=== PATIENT | female | born 1930 | race Native Hawaiian/Other Pacific Islander ===

== ENCOUNTER 2017-06-18 10:30 | Inpatient (IN) | payer OTHER ==
[~2017-06-18] VITALS: Ht 172.7 cm; Wt 64.6 kg
[2017-06-18 12:12] VITALS: BP 157/60; TEMP 98.1; Ht 172.7 cm; Wt 64.6 kg
[2017-06-18] MEDS ORDERED: NEXIUM40 M1 PO (12:24)
[2017-06-18] MEDS ORDERED: SERT50TA PO (12:24)
[2017-06-18] MEDS ORDERED: CARDIZEM LA360 MG PO (12:25)
[2017-06-18] MEDS ORDERED: NAMENDA5 MG OR (12:25)
[2017-06-18] MEDS ORDERED: TOVIAZ8 MG OR (12:26)
[2017-06-18] MEDS ORDERED: METO50TA27 PO (12:26)
[2017-06-18] MEDS ORDERED: ACID REDUCER150 M1 PO (12:27)
[2017-06-18] MEDS ORDERED: DONE5TAB PO (12:28)
[2017-06-18] MEDS ORDERED: LISI10TA11 PO (12:29)
[2017-06-18] MEDS ORDERED: AMLO2.5T PO (12:31)
[2017-06-18] MEDS ORDERED: D MANNOS OR (12:33)
[2017-06-18] MEDS ORDERED: SOLFIBER1 POW PO (12:33)
[2017-06-18 13:06] LABS: POTASSIUM 3.5 mmol/L (3.6-5.2)
[2017-06-18 13:22] LABS: PLATELET COUNT 341 K/uL (152-353)
[2017-06-18 16:00] VITALS: BP 157/60; TEMP 98.1
[2017-06-18 20:00] VITALS: BP 155/59; TEMP 98.3
[2017-06-19] VITALS: BP 121/52; TEMP 97.4
[2017-06-19 04:00] VITALS: BP 168/72; TEMP 98.1
[2017-06-19 05:32] LABS: PLATELET COUNT 275 K/uL (152-353)
[2017-06-19 05:43] LABS: POTASSIUM 2.7 mmol/L (3.6-5.2)
[2017-06-19 08:00] VITALS: BP 134/67; TEMP 98.3
[2017-06-19 12:00] VITALS: BP 161/75; TEMP 98.5
[2017-06-19 16:00] VITALS: BP 168/63; TEMP 98.2
[2017-06-19 20:00] VITALS: BP 148/78; TEMP 98.7
[2017-06-20] VITALS: BP 151/69; TEMP 98.9
[2017-06-20 04:00] VITALS: BP 153/76; TEMP 98.3
[2017-06-20 05:06] LABS: PLATELET COUNT 272 K/uL (152-353)
[2017-06-20 05:23] LABS: POTASSIUM 3.5 mmol/L (3.6-5.2); SODIUM 134 mmol/L (136-145)
[2017-06-20 08:00] VITALS: BP 175/70; TEMP 98.6
[2017-06-20 12:00] VITALS: BP 176/79; TEMP 98.6
== END 2017-06-20 15:50 | DRG 179 ==
LOC: MED/SURG 10:30
DX: J15.5 Pneumonia due to Escherichia coli (principal); J15.1 Pneumonia due to Pseudomonas; K21.9 Gastro-esophageal reflux disease without esophagitis; I10 Essential (primary) hypertension; F03.90 Unspecified dementia, unspecified severity, without behavioral disturbance, psychotic disturbance, mood disturbance, and anxiety
CPT/HCPCS: 36415; 80053; 81000; 83735; 85027; 85379; 87040; 87070; 87077; 87186; 87205; 93005; 94640; 94664; 94760; 96372; J1650; J1956; J2060; J2405; J3480